=== PATIENT | male | born 1950 | race Hispanic/Latino ===

== ENCOUNTER 2022-10-14 08:57 | Inpatient (IN) | payer OTHER ==
[~2022-10-14] VITALS: Ht 172.7 cm; Wt 72.6 kg
[2022-10-14 09:22] LABS: BASOPHILS % (AUTO) 0.3 % (0.0-5.0); HEMATOCRIT 46.3 % (42-54); LYMPHOCYTES % (AUTO) 3.7 % (21.0-51.0); MEAN CORPUSCULAR HEMOGLOBIN 29.9 pg (27.0-33.0); MEAN CORPUSCULAR HGB CONC 33.9 g/dL (32.0-36.0); MEAN CORPUSCULAR VOLUME 88.2 fL (79-99); MONOCYTES % (AUTO) 9.3 % (3.0-13.0); NEUTROPHILS % (AUTO) 85.9 % (40.0-77.0); PLATELET COUNT (AUTO) 343 K/uL (130-400); RED BLOOD CELL COUNT(AUTO) 5.25 MIL/uL (4.50-6.20); RED CELL DISTRIBUTION WIDTH 12.6 % (11.0-15.5); WHITE BLOOD COUNT (AUTO) 24.5 K/uL (4.8-10.8)
[2022-10-14] MEDS ORDERED: ZOSYN 3.375GM+NS 50ML 50 ML IVPB STA (09:25)
[2022-10-14] MEDS ORDERED: ACETAMINOPHEN 325 MG TAB PO ONE (09:30)
[2022-10-14] MEDS ORDERED: MORPHINE 4 MG SYG IVP ONE (09:30)
[2022-10-14] MEDS ORDERED: KETOROLAC 15MG/ML VIAL (15MG/ML) IV ONE (09:30)
[2022-10-14] MEDS ORDERED: 0.9%NACL 1000ML 2,052 ML IV ONE (09:30)
[2022-10-14] MEDS ORDERED: PANTOPRAZOLE 40 MG/VIAL IVP ONE (09:30)
[2022-10-14] MEDS ORDERED: 0.9%NACL 1000ML 1,000 ML IV ONE (09:30)
[2022-10-14] MEDS ORDERED: ONDANSETRON 4MG INJ IVP ONE (09:30)
[2022-10-14 09:31] LABS: CREATININE 0.9 mg/dL (0.5-1.5); POTASSIUM 3.2 mmol/L (3.5-5.1)
[2022-10-14 09:35] LABS: TOTAL PROTEIN, SERUM 7.1 g/dL (6.0-8.3)
[2022-10-14] MEDS ORDERED: ZOSYN 3.375GM+NS 50ML 50 ML IVPB ONE (09:36)
[2022-10-14 10:41] LABS: APPEARANCE,URINE CLEAR (CLEAR); BILIRUBIN,URINE NEGATIVE (NEGATIVE); COLOR,URINE YELLOW (YELLOW); GLUCOSE, URINE (UA) NEGATIVE (NEGATIVE); KETONES,URINE 5 mg/dL (NEGATIVE); LEUKOCYTE ESTERASE ,URINE NEGATIVE Leu/uL (NEGATIVE); NITRATE,URINE NEGATIVE (NEGATIVE); OCCULT BLOOD,URINE SMALL (NEGATIVE); PROTEIN,URINE 10 mg/dL (NEGATIVE); UROBILINOGEN,URINE 3 mg/dL (0.2-1.0)
[2022-10-14 10:51] LABS: MUCUS,URINE RARE LPF (None Seen)
[2022-10-14] MEDS ORDERED: IOHEXOL 350 MG/ML 100ML INFUS..BTL IV ONE (11:18)
[2022-10-14] MEDS: ZOSYN 3.375GM +NS 50ML IVPB SCH ×2 (12:56→20:26)
[2022-10-14] MEDS ORDERED: ONDANSETRON 4MG INJ IVP PRN (13:00)
[2022-10-14] MEDS ORDERED: MAGNESIUM 2GM PREMIX 50ML 50 ML IV PRN (13:00)
[2022-10-14] MEDS: POTASSIUM CHLORIDE 20MEQ/100ML 100 ML IV PRN (13:19)
[2022-10-14] MEDS: LIDOCAINE HCL-MPF 1% 2ML VIAL IV PRN (13:19)
[2022-10-14] MEDS ORDERED: FOLIC ACID 5 MG/ML VIAL IV ONE (14:00)
[2022-10-14] MEDS ORDERED: CHLORDIAZEPOXIDE HCL 25 MG CAP PO PRN (14:00)
[2022-10-14] MEDS ORDERED: THIAMINE HCL 100 MG/ML 2ML VIAL IVP ONE (14:00)
[2022-10-14] MEDS ORDERED: NICOTINE 21 MG/ 24 HR PATCH TD SCH (14:00)
[2022-10-14] MEDS ORDERED: LORAZEPAM 1 MG TABLET PO PRN (14:00)
[2022-10-14] MEDS ORDERED: HYDRALAZINE 25MG TABLET PO PRN (15:00)
[2022-10-14] MEDS ORDERED: 0.9%NACL 50ML IV SCH (16:00)
[2022-10-14] MEDS: KETOROLAC 15MG/ML VIAL (15MG/ML) IM PRN (16:46)
[2022-10-14] MEDS: ACETAMINOPHEN 325 MG TAB PO PRN ×2 (18:34→21:41)
[2022-10-14 20:03] VITALS: BP 156/66
[2022-10-15] VITALS (7 sets, daily range): BP systolic 120–155; BP diastolic 57–81
[2022-10-15] MEDS: ZOSYN 3.375GM +NS 50ML IVPB SCH ×3 (04:36→21:02)
[2022-10-15] MEDS: KETOROLAC 15MG/ML VIAL (15MG/ML) IM PRN (04:36)
[2022-10-15 05:59] LABS: BASOPHILS % (AUTO) 0.3 % (0.0-5.0); EOSINOPHILS % (AUTO) 0.1 % (0.0-8.0); LYMPHOCYTES % (AUTO) 4.6 % (21.0-51.0); MEAN CORPUSCULAR VOLUME 90.7 fL (79-99); MONOCYTES % (AUTO) 7.2 % (3.0-13.0); NEUTROPHILS % (AUTO) 86.4 % (40.0-77.0); PLATELET COUNT (AUTO) 307 K/uL (130-400); RED BLOOD CELL COUNT(AUTO) 4.74 MIL/uL (4.50-6.20); RED CELL DISTRIBUTION WIDTH 12.7 % (11.0-15.5)
[2022-10-15 06:09] LABS: ALBUMIN 2.5 g/dL (3.5-5.0); CREATININE 0.8 mg/dL (0.5-1.5); MAGNESIUM 1.8 mg/dL (1.80-2.40); POTASSIUM 3.2 mmol/L (3.5-5.1); TOTAL PROTEIN, SERUM 6.3 g/dL (6.0-8.3)
[2022-10-15 07:32] LABS: BAND NEUTROPHILS % (MANUAL) 4 % (0-2); LYMPHOCYTES % (MANUAL) 6 % (22-44); MAN.DIFF COMMENT-IMPRESSION MANUAL DIFFERENTIAL; MONOCYTES % (MANUAL) 5 % (2-9); PLATELET MORPHOLOGY COMMENT ADEQUATE; SEGMENTED NEUTROPHILS % 85 % (40-70)
[2022-10-15] MEDS: THIAMINE HCL 100 MG TABLET PO SCH (09:17)
[2022-10-15] MEDS: NICOTINE 21 MG/ 24 HR PATCH TD SCH (09:17)
[2022-10-15] MEDS: FOLIC ACID 1 MG TABLET PO SCH (09:17)
[2022-10-15] MEDS: ENOXAPARIN SODIUM 40 MG/0.4 ML SYRINGE SQ SCH (09:18)
[2022-10-15] MEDS: FAMOTIDINE 20MG VIAL IV SCH (09:18)
[2022-10-15] MEDS: FLUCONAZOLE 200 MG/NS 100 ML 100 ML IV SCH (11:30)
[2022-10-15] MEDS: LACTATED RINGERS 1000ML 1,000 ML IV SCH (17:00)
[2022-10-16 03:51] VITALS: BP 149/85
[2022-10-16] MEDS: ZOSYN 3.375GM +NS 50ML IVPB SCH ×3 (04:30→20:53)
[2022-10-16 05:05] LABS: BASOPHILS % (AUTO) 0.5 % (0.0-5.0); EOSINOPHILS % (AUTO) 0.6 % (0.0-8.0); HEMATOCRIT 40.9 % (42-54); LYMPHOCYTES % (AUTO) 12.4 % (21.0-51.0); MEAN CORPUSCULAR HEMOGLOBIN 30.2 pg (27.0-33.0); MEAN CORPUSCULAR HGB CONC 33.7 g/dL (32.0-36.0); MEAN CORPUSCULAR VOLUME 89.5 fL (79-99); MONOCYTES % (AUTO) 10.3 % (3.0-13.0); NEUTROPHILS % (AUTO) 75.3 % (40.0-77.0); PLATELET COUNT (AUTO) 310 K/uL (130-400); RED BLOOD CELL COUNT(AUTO) 4.57 MIL/uL (4.50-6.20); RED CELL DISTRIBUTION WIDTH 12.8 % (11.0-15.5)
[2022-10-16 05:26] LABS: ALBUMIN 2.5 g/dL (3.5-5.0); CREATININE 0.8 mg/dL (0.5-1.5); MAGNESIUM 2.1 mg/dL (1.80-2.40); POTASSIUM 3.1 mmol/L (3.5-5.1); TOTAL PROTEIN, SERUM 6.2 g/dL (6.0-8.3)
[2022-10-16] MEDS: LIDOCAINE HCL-MPF 1% 2ML VIAL IV PRN (06:07)
[2022-10-16] MEDS: POTASSIUM CHLORIDE 20MEQ/100ML 100 ML IV PRN ×2 (06:08→11:37)
[2022-10-16] MEDS: LACTATED RINGERS 1000ML 1,000 ML IV SCH ×2 (06:20→19:40)
[2022-10-16 07:15] VITALS: BP 145/74
[2022-10-16] MEDS: NICOTINE 21 MG/ 24 HR PATCH TD SCH (08:39)
[2022-10-16] MEDS: FAMOTIDINE 20MG VIAL IV SCH (08:40)
[2022-10-16] MEDS: FOLIC ACID 1 MG TABLET PO SCH (09:00)
[2022-10-16] MEDS: POTASSIUM CHLORIDE 20 MEQ/100 ML BAG IV SCH (09:00)
[2022-10-16] MEDS: ENOXAPARIN SODIUM 40 MG/0.4 ML SYRINGE SQ SCH (09:00)
[2022-10-16] MEDS: THIAMINE HCL 100 MG TABLET PO SCH (09:00)
[2022-10-16 11:15] VITALS: BP 159/99
[2022-10-16] MEDS: FLUCONAZOLE 200 MG/NS 100 ML 100 ML IV SCH (11:21)
[2022-10-16 15:15] VITALS: BP 162/86
[2022-10-16 19:57] VITALS: BP 156/88
[2022-10-16 23:14] VITALS: BP 165/96
[2022-10-17 04:41] VITALS: BP 160/87
[2022-10-17 04:45] LABS: BASOPHILS % (AUTO) 0.6 % (0.0-5.0); EOSINOPHILS % (AUTO) 1.2 % (0.0-8.0); HEMATOCRIT 44.3 % (42-54); LYMPHOCYTES % (AUTO) 16.1 % (21.0-51.0); MEAN CORPUSCULAR HEMOGLOBIN 29.9 pg (27.0-33.0); MEAN CORPUSCULAR HGB CONC 33.2 g/dL (32.0-36.0); MEAN CORPUSCULAR VOLUME 90.2 fL (79-99); MONOCYTES % (AUTO) 12.5 % (3.0-13.0); NEUTROPHILS % (AUTO) 68.9 % (40.0-77.0); PLATELET COUNT (AUTO) 371 K/uL (130-400); RED BLOOD CELL COUNT(AUTO) 4.91 MIL/uL (4.50-6.20); RED CELL DISTRIBUTION WIDTH 12.7 % (11.0-15.5); WHITE BLOOD COUNT (AUTO) 8.3 K/uL (4.8-10.8)
[2022-10-17 04:58] LABS: ALBUMIN 2.6 g/dL (3.5-5.0); CREATININE 0.8 mg/dL (0.5-1.5); MAGNESIUM 2.1 mg/dL (1.80-2.40); POTASSIUM 4.1 mmol/L (3.5-5.1); TOTAL PROTEIN, SERUM 6.5 g/dL (6.0-8.3)
[2022-10-17] MEDS: ZOSYN 3.375GM +NS 50ML IVPB SCH ×3 (05:09→20:46)
[2022-10-17] MEDS ORDERED: LIDOCAINE HCL-MPF 1% 2ML VIAL IV PRN (05:30)
[2022-10-17] MEDS ORDERED: POTASSIUM CHLORIDE 20MEQ/100ML 100 ML IV PRN (05:30)
[2022-10-17 07:20] VITALS: BP 149/81
[2022-10-17] MEDS: NICOTINE 21 MG/ 24 HR PATCH TD SCH (09:00)
[2022-10-17] MEDS: FOLIC ACID 1 MG TABLET PO SCH (09:52)
[2022-10-17] MEDS: ENOXAPARIN SODIUM 40 MG/0.4 ML SYRINGE SQ SCH (09:52)
[2022-10-17] MEDS: FAMOTIDINE 20MG VIAL IV SCH (09:52)
[2022-10-17] MEDS: THIAMINE HCL 100 MG TABLET PO SCH (09:52)
[2022-10-17] MEDS: FLUCONAZOLE 200 MG/NS 100 ML 100 ML IV SCH (09:52)
[2022-10-17 11:20] VITALS: BP 146/81
[2022-10-17] MEDS: LACTATED RINGERS 1000ML 1,000 ML IV SCH ×2 (13:25→22:21)
[2022-10-17 15:20] VITALS: BP 170/94
[2022-10-17 20:13] VITALS: BP 150/85
[2022-10-17 23:56] VITALS: BP 152/86
[2022-10-18 03:30] VITALS: BP 152/83
[2022-10-18] MEDS: ZOSYN 3.375GM +NS 50ML IVPB SCH (04:55)
[2022-10-18 05:40] LABS: BASOPHILS % (AUTO) 1.2 % (0.0-5.0); EOSINOPHILS % (AUTO) 1.6 % (0.0-8.0); HEMATOCRIT 46.8 % (42-54); LYMPHOCYTES % (AUTO) 30.4 % (21.0-51.0); MEAN CORPUSCULAR HEMOGLOBIN 29.9 pg (27.0-33.0); MEAN CORPUSCULAR HGB CONC 31.6 g/dL (32.0-36.0); MEAN CORPUSCULAR VOLUME 94.5 fL (79-99); MONOCYTES % (AUTO) 11.6 % (3.0-13.0); NEUTROPHILS % (AUTO) 54.2 % (40.0-77.0); PLATELET COUNT (AUTO) 370 K/uL (130-400); RED BLOOD CELL COUNT(AUTO) 4.95 MIL/uL (4.50-6.20); RED CELL DISTRIBUTION WIDTH 12.9 % (11.0-15.5); WHITE BLOOD COUNT (AUTO) 7.3 K/uL (4.8-10.8)
[2022-10-18 05:54] LABS: ALBUMIN 2.7 g/dL (3.5-5.0); CREATININE 0.9 mg/dL (0.5-1.5); POTASSIUM 3.5 mmol/L (3.5-5.1); TOTAL PROTEIN, SERUM 6.6 g/dL (6.0-8.3)
[2022-10-18] MEDS: POTASSIUM CHLORIDE 20 MEQ/100 ML BAG IV SCH ×2 (07:16→07:39)
[2022-10-18] MEDS: ENOXAPARIN SODIUM 40 MG/0.4 ML SYRINGE SQ SCH (07:30)
[2022-10-18] MEDS: THIAMINE HCL 100 MG TABLET PO SCH (07:38)
[2022-10-18] MEDS: FOLIC ACID 1 MG TABLET PO SCH (07:38)
[2022-10-18] MEDS: FAMOTIDINE 20MG VIAL IV SCH (07:39)
[2022-10-18] MEDS: LIDOCAINE HCL-MPF 1% 2ML VIAL IV PRN (07:39)
[2022-10-18] MEDS: NICOTINE 21 MG/ 24 HR PATCH TD SCH (07:39)
[2022-10-18 08:37] VITALS: BP 160/74
[2022-10-18] MEDS ORDERED: IOHEXOL 350 MG/ML 100ML INFUS..BTL IV ONE (09:27)
[2022-10-18] MEDS: FLUCONAZOLE 200 MG/NS 100 ML 100 ML IV SCH (10:51)
[2022-10-18 12:03] VITALS: BP 150/80
[2022-10-19] MEDS ORDERED: LOSARTAN 50 MG TABLET PO SCH (10:00)
== END 2022-10-18 13:20 | disposition left against medical advice (07) | DRG 871 ==
LOC: EDH 08:57 → EDHIP 12:33 → 3DH 18:17
PROVIDERS: ADMIT Hospitalist; ATTEND Hospitalist
DX: A41.50 Gram-negative sepsis, unspecified (principal); K65.1 Peritoneal abscess; K57.20 Diverticulitis of large intestine with perforation and abscess without bleeding; E44.0 Moderate protein-calorie malnutrition; Z20.822 Contact with and (suspected) exposure to COVID-19; F10.20 Alcohol dependence, uncomplicated; F32.A Depression, unspecified; B18.2 Chronic viral hepatitis C; E87.6 Hypokalemia; E78.5 Hyperlipidemia, unspecified; F17.210 Nicotine dependence, cigarettes, uncomplicated; Z68.24 Body mass index [BMI] 24.0-24.9, adult
CPT/HCPCS: 36415; 71045; 74177; 80053; 81001; 83605; 83690; 83735; 84484; 85007; 85025; 87040; 87088; 87635; 87804; 87880; 93005; 99291; C9113; C9803; G0378; J1450; J1650; J1885; J2270; J2405; J2543; J3411; J3475; J3480; J3490; J7030; Q9967

== ENCOUNTER 2022-10-21 12:38 | Emergency (ER) | payer OTHER ==
[~2022-10-21] VITALS: Ht 172.7 cm; Wt 68.5 kg
[2022-10-21 13:36] LABS: EOSINOPHILS % (AUTO) 1.8 % (0.0-8.0); HEMATOCRIT 48.2 % (42-54); LYMPHOCYTES % (AUTO) 23.7 % (21.0-51.0); MEAN CORPUSCULAR HEMOGLOBIN 29.9 pg (27.0-33.0); MEAN CORPUSCULAR HGB CONC 33.2 g/dL (32.0-36.0); MEAN CORPUSCULAR VOLUME 90.1 fL (79-99); MONOCYTES % (AUTO) 13.3 % (3.0-13.0); PLATELET COUNT (AUTO) 444 K/uL (130-400); RED BLOOD CELL COUNT(AUTO) 5.35 MIL/uL (4.50-6.20); WHITE BLOOD COUNT (AUTO) 8.4 K/uL (4.8-10.8)
[2022-10-21 13:43] LABS: APPEARANCE,URINE CLEAR (CLEAR); BILIRUBIN,URINE NEGATIVE (NEGATIVE); COLOR,URINE LIGHT-YELLOW (YELLOW); GLUCOSE, URINE (UA) NEGATIVE (NEGATIVE); KETONES,URINE NEGATIVE (NEGATIVE); LEUKOCYTE ESTERASE ,URINE NEGATIVE Leu/uL (NEGATIVE); NITRATE,URINE NEGATIVE (NEGATIVE); OCCULT BLOOD,URINE NEGATIVE (NEGATIVE); PROTEIN,URINE NEGATIVE (NEGATIVE); UROBILINOGEN,URINE 0.2 mg/dL (0.2-1.0)
[2022-10-21 13:59] LABS: CREATININE 0.8 mg/dL (0.5-1.5)
[2022-10-21 14:02] LABS: ALBUMIN 3.2 g/dL (3.5-5.0); TOTAL PROTEIN, SERUM 7.2 g/dL (6.0-8.3)
[2022-10-21 15:07] VITALS: BP 147/76
== END 2022-10-21 15:54 | disposition home or self-care (01) ==
LOC: EDH 12:38
DX: R10.9 Unspecified abdominal pain (principal); Z98.890 Other specified postprocedural states
CPT/HCPCS: 36415; 80053; 81003; 83605; 83690; 84484; 85025; 93005